=== PATIENT | male | born 1950 | race African-American/Black ===

== ENCOUNTER 2021-03-19 20:03 | Emergency (ER) | payer OTHER ==
[~2021-03-19] VITALS: Ht 175.3 cm; Wt 77.1 kg
[2021-03-19] MEDS ORDERED: NAPROXEN250 MG PO (21:04)
[2021-03-19] MEDS ORDERED: FLEXERIL PO (21:04)
[2021-03-19 21:42] VITALS: BP 138/76
== END 2021-03-19 21:51 | disposition home or self-care (01) ==
LOC: ER 20:03
DX: S46.912A Strain of unspecified muscle, fascia and tendon at shoulder and upper arm level, left arm, initial encounter (principal); S60.022A Contusion of left index finger without damage to nail, initial encounter; I10 Essential (primary) hypertension; W01.0XXA Fall on same level from slipping, tripping and stumbling without subsequent striking against object, initial encounter; Y93.K1 Activity, walking an animal; Y92.89 Other specified places as the place of occurrence of the external cause; Y99.8 Other external cause status